=== PATIENT | male | born 1960 | race Caucasian/White ===

== ENCOUNTER → 2016-03-08 | Outpatient (REF) | payer MEDICAID, OTHER | LOC: M SFHCCLAY 15:51 | PROVIDERS: ATTEND Family Medicine | DX: E11.9 Type 2 diabetes mellitus without complications (principal) ==

== ENCOUNTER → 2016-06-15 | Outpatient (REF) | payer MEDICAID | LOC: M SFHCCLAY 06-14 17:13 | PROVIDERS: ATTEND Family Medicine | DX: E11.9 Type 2 diabetes mellitus without complications (principal) ==

== ENCOUNTER → 2016-11-28 | Outpatient (REF) | payer OTHER ==
[2016-11-29 13:07] LABS: ANION GAP 8 MEQ/L (8-16); BLOOD UREA NITROGEN 13 MG/DL (7-18); CALCIUM LEVEL 9.6 MG/DL (8.5-10.1); CARBON DIOXIDE LEVEL 30 MEQ/L (21-32); CHLORIDE LEVEL 100 MEQ/L (98-107); CREATININE FOR GFR 0.92 MG/DL (0.70-1.30); GLOMERULAR FILTRATION RATE > 60.0 (>56); GLUCOSE, FASTING 173 MG/DL (70-105); POTASSIUM SERUM 4.3 MEQ/L (3.5-5.1); SODIUM LEVEL 138 MEQ/L (136-145)
== END ==
LOC: M SFHCCLAY 15:43
PROVIDERS: ATTEND Family Medicine
DX: E11.9 Type 2 diabetes mellitus without complications (principal)

== ENCOUNTER → 2017-04-17 | Outpatient (REF) | payer OTHER ==
[2017-04-18 11:48] LABS: ANION GAP 4 MEQ/L (8-16); BLOOD UREA NITROGEN 9 MG/DL (7-18); CALCIUM LEVEL 8.9 MG/DL (8.5-10.1); CARBON DIOXIDE LEVEL 32 MEQ/L (21-32); CHLORIDE LEVEL 102 MEQ/L (98-107); CREATININE FOR GFR 0.72 MG/DL (0.70-1.30); GLOMERULAR FILTRATION RATE > 60.0 (>56); GLUCOSE, FASTING 171 MG/DL (70-100); POTASSIUM SERUM 4.4 MEQ/L (3.5-5.1); SODIUM LEVEL 138 MEQ/L (136-145)
[2017-04-18 12:00] LABS: ESTIMATED AVERAGE GLUCOSE 174 MG/DL (60-110); HEMOGLOBIN A1c 7.7 %
== END ==
LOC: M SFHCCLAY 14:21
DX: E11.9 Type 2 diabetes mellitus without complications (principal); I10 Essential (primary) hypertension

== ENCOUNTER → 2017-05-15 | Outpatient (REF) | payer OTHER | LOC: M LAB REF 11:53 | DX: D23.39 Other benign neoplasm of skin of other parts of face (principal) ==

== ENCOUNTER → 2017-07-18 | Outpatient (REF) | payer OTHER | LOC: M LAB REF 07-19 12:44 | DX: D23.39 Other benign neoplasm of skin of other parts of face (principal) ==

== ENCOUNTER → 2017-09-05 | Outpatient (REF) | payer OTHER | LOC: M LAB REF 09:50 | DX: C44.311 Basal cell carcinoma of skin of nose (principal) | CPT/HCPCS: 88305 ==

== ENCOUNTER → 2017-10-11 | Outpatient (REF) | payer OTHER | LOC: M SFHCCLAY 14:19 | DX: E11.9 Type 2 diabetes mellitus without complications (principal) ==

== ENCOUNTER → 2018-02-12 | Outpatient (REF) | payer OTHER ==
[2018-02-13 11:36] LABS: BLOOD UREA NITROGEN 16 MG/DL (7-18); CALCIUM LEVEL 8.7 MG/DL (8.5-10.1); CARBON DIOXIDE LEVEL 32 MEQ/L (21-32); CHLORIDE LEVEL 98 MEQ/L (98-107); CREATININE FOR GFR 0.82 MG/DL (0.70-1.30); GLOMERULAR FILTRATION RATE > 60.0 (>56); GLUCOSE, FASTING 261 MG/DL (70-100); POTASSIUM SERUM 4.2 MEQ/L (3.5-5.1); SODIUM LEVEL 136 MEQ/L (136-145)
[2018-02-13 11:52] LABS: HEMOGLOBIN A1c 9.8 %
== END ==
LOC: M SFHCCLAY 15:02
PROVIDERS: ATTEND Family Medicine
DX: E11.9 Type 2 diabetes mellitus without complications (principal); I10 Essential (primary) hypertension

== ENCOUNTER 2018-12-02 19:59 | Inpatient (IN) | payer OTHER ==
[~2018-12-02] VITALS: Ht 170.2 cm; Wt 99.7 kg
[2018-12-02] MEDS ORDERED: methylPREDNISolone INJ 125 MG/2 ML VIAL (J2930) IV ONE (20:30)
[2018-12-02] MEDS: IPRATROPIUM 0.5MG/ALBUTEROL 2.5MG INH SOL UD 3ML (DUONEB)(J7620) NEB PRN ×3 (20:38→22:42)
[2018-12-02 20:44] LABS: BASO # 0.1 10^3/uL (0.0-0.2); BASO % 0.6 % (0.0-1.0); EOS % 0.3 % (0.0-3.0); HEMATOCRIT 48.4 % (42.0-52.0); HEMOGLOBIN 17.1 g/dl (13.5-17.5); LYMPH # 2.1 10^3/uL (1.5-5.0); LYMPH % 16.4 % (24.0-44.0); MEAN CORPUSCULAR HEMOGLOBIN 31.7 pg (27.0-33.0); MEAN CORPUSCULAR HGB CONC 35.3 g/dl (32.0-36.5); MEAN CORPUSCULAR VOLUME 89.8 fl (80.0-96.0); NEUTROPHILS # 9.5 10^3/uL (1.5-8.5); NEUTROPHILS % 74.5 % (36.0-66.0); PLATELET COUNT, AUTOMATED 269 10^3/uL (150-450); RED BLOOD COUNT 5.39 10^6/uL (4.30-6.10); WHITE BLOOD COUNT 12.7 10^3/uL (4.0-10.0)
[2018-12-02 20:44] LABS: VENOUS BASE EXCESS 4.2 (-2.0-2.0); VENOUS HCO3 31.1 MEQ/L (23.0-27.0); VENOUS O2 SATURATION 88.3 % (60.0-80.0); VENOUS PARTIAL PRESSURE CO2 54.2 mmHg (38.0-50.0); VENOUS PARTIAL PRESSURE O2 54.4 mmHg (30.0-50.0); VENOUS PH 7.377 UNITS (7.330-7.430); VENOUS STANDARD HCO3 27.9 MEQ/L; VENOUS TOTAL CO2 32.8 MEQ/L (24.0-28.0)
[2018-12-02] MEDS: DOCUSATE SODIUM 100 MG CAP PO SCH (21:00)
[2018-12-02 21:05] LABS: INR 1.12; PROTHROMBIN TIME 14.1 SECONDS (11.8-14.0)
[2018-12-02 21:06] LABS: PARTIAL THROMBOPLASTIN TIME 28.1 SECONDS (25.0-38.4)
[2018-12-02 21:14] LABS: BLOOD UREA NITROGEN 12 MG/DL (7-18); CREATININE FOR GFR 0.88 MG/DL (0.70-1.30); GLUCOSE, FASTING 275 MG/DL (70-100)
[2018-12-02 21:15] LABS: ALBUMIN 3.8 GM/DL (3.2-5.2); ALT/SGPT 23 U/L (12-78); BILIRUBIN,DIRECT 0.3 MG/DL (0.0-0.2); CALCIUM LEVEL 8.8 MG/DL (8.5-10.1); CARBON DIOXIDE LEVEL 33 MEQ/L (21-32); CHLORIDE LEVEL 97 MEQ/L (98-107); CK-MB VALUE MASS 1.4 NG/ML (<3.6); CPK CREATINE PHOSPHOKINASE 158 U/L (39-308); FREE T4 1.05 NG/DL (0.76-1.46); GLOMERULAR FILTRATION RATE > 60.0 (>56); MB/CK RELATIVE INDEX 0.89 (< OR =4); NT-PRO BNP 50 PG/ML (<125); SODIUM LEVEL 136 MEQ/L (136-145); THYROID STIMULATING HORMONE 0.654 uIU/ML (0.358-3.740); TOTAL PROTEIN 7.3 GM/DL (6.4-8.2); TROPONIN I < 0.02 NG/ML (< 0.10)
[2018-12-02] MEDS ORDERED: ISOVUE-370 76% 100ML VIAL (Q9967) As Ordered ONE (21:33)
--- NOTE | 2018-12-02 22:16 | REPVR ---
PROCEDURE INFORMATION: Exam: CT Angiography Chest With Contrast Exam date and time: 12/02/2018 9:45 PM Clinical history: 58 years old, male; Shortness of breath; Additional info: SOB, hypoxia TECHNIQUE: Imaging protocol: Computed tomographic angiography of the chest with intravenous contrast. 3D rendering: MIP reconstructed images were created and reviewed. Radiation optimization: All CT scans at this facility use at least one of these dose optimization techniques: automated exposure control; mA and/or kV adjustment per patient size (includes targeted exams where dose is matched to clinical indication); or iterative reconstruction. Contrast material: ISOVUE 370; Contrast volume: 75 ml; Contrast route: IV; COMPARISON: CR Chest, 2 view PA, Lat 12/02/2018 8:54 PM FINDINGS: Pulmonary arteries: The main pulmonary artery measures 28 mm. No central pulmonary embolism is identified. Aorta: The ascending thoracic aorta measures 34 mm. Lungs: Slight interstitial prominence with minimal fibro-atelectatic change in the medial right middle lobe, anterior right lower lobe and lingular tip. Minimal infiltrates, greatest in the right middle lobe. Pleural space: Unremarkable. No pneumothorax. No pleural effusion. Heart: Unremarkable. No cardiomegaly. No pericardial effusion. Lymph nodes: Numerous mediastinal nodes which are borderline overall. Bones/joints: Unremarkable. No acute fracture. Soft tissues: Unremarkable. IMPRESSION: 1. Borderline mediastinal adenopathy. 2. Slight interstitial prominence with minimal fibro-atelectatic change and minimal scattered tree in bud infiltrates, greatest in the right middle lobe. 3. No central pulmonary embolism is identified. Electronically signed by: Jefferson Tineo On 12/02/2018 22:16:26 PM
[2018-12-03] MEDS ORDERED: MOM 30ML SUSPENSION UDC PO PRN
[2018-12-03] MEDS ORDERED: MAALOX 30 ML SUSP *UDC PO PRN
[2018-12-03] MEDS ORDERED: ACETAMINOPHEN TAB 650MG DOSE (2X325MG) PO PRN
[2018-12-03] MEDS ORDERED: IPRATROPIUM 0.5MG/ALBUTEROL 2.5MG INH SOL UD 3ML (DUONEB)(J7620) NEB PRN (00:15)
--- NOTE | 2018-12-03 00:17 | HPEPDOC ---
General Date of Admission 12/03/18 Date of Service: Dec 03, 2018 Primary Care Physician: Niall Rollins MD Attending Physician: JAMIE YE MD Chief Complaint The patient is a 58-year-old male admitted with a reason for visit of COUGH. Source: Patient Exam Limitations: No limitations Timing/Duration: Other (few days) Severity: Moderate Associated Symptoms: Shortness of breath History of Present Illness This is 58 years old white male with past medical history of significant disease except history of smoking since he was 13 years old. Patient follows up at the [facility] for his routine follow-up and examinations. As per chelly ent, he quit smoking about 2 weeks ago as he is been feeling increasing shortness of breath since the beginning of this month. Denies chest pain, abdominal pain, nausea, vomiting, dizziness, cough, sputum, hemoptysis, etc. Home Medications No Active Prescriptions or Reported Meds Allergies Coded Allergies: No Known Allergies (Unverified , 12/02/18) Past Medical History Medical History None, as per patient Surgical History Right shoulder arthroscopic surgery Family History Significant Family History: No pertinent family hx Social History * Smoker: current smoker, greater than 1 pack/day Alcohol: Denies Drugs: denies A-FIB/CHADSVASC A-FIB History Current/History of A-Fib/PAF?: No Review of Systems Constitutional: Denies: Chills, Fever, Malaise, Night Sweats, Weakness, Fatigue, Weight Loss, Lethargy, Other Eyes: Denies: Pain, Vision change, Conjunctivae inflammation, Eyelid inflammation, Redness, Other ENT: Denies: Head Aches, Ear Pain, Dysphagia, Sinus Congestion, Post Nasal Drip, Sore Throat, Epistaxis, Other Symptoms Skin: Denies: Rash, Lesions, Jaundice, Bruising, Itching, Dry, Breakdown, Nail Changes, Other Pulmonary: Reports: Dyspnea Cardiovascular: Denies: Chest Pain, Palpitations, Orthopnea, Paroxysmal Noc. Dyspnea, Edema, Lt Headedness, Other Symptoms Gastrointestinal: Denies: Nausea, Vomiting, Abdominal Pain, Diarrhea, Constipat ion, Melena, Hematochezia, Other Symptoms Genitourinary: Denies: Dysuria, Frequency, Incontinence, Hematuria, Retention, Other Symptoms Endocrine: Denies: Polydipsia, Polyphagia, Polyuria, Heat Intolerance, Cold Intolerance, Other Endocrine Sx Musculoskeletal: Denies: Neck Pain, Back Pain, Shoulder Pain, Arm Pain, Hand Pain, Leg Pain, Foot Pain, Joint Pain, Muscle Pain, Spasms, Other Symptoms Neurological: Denies: Weakness, Numbness, Incoordination, Change in speech, Confusion, Seizures, Other Symptoms Psych: Denies: Mood Normal, Anxiety, Depression, Memory Issues, Thoughts of Self Harm, Anger, Thoughts of Harming Other, Other Psych Physical Examination General Exam: Positive: Alert, Cooperative Eye Exam: Positive: PERRLA, Conjunctiva & lids normal ENT Exam: Positive: Atraumatic, Mucous membr. moist/pink Neck Exam: Positive: Supple Chest Exam: Positive: Wheezing (. Bilateral expiratory wheezing) Heart Exam: Positive: Rate Normal, Normal S1, Normal S2 Abdomen Exam: Positive: Normal bowel sounds Extremity Exam: Positive: Normal pulses Skin Exam: Positive: Nl turgor and temperature Neuro Exam: Positive: Strength at 5/5 X4 ext, Sensation Intact Psych Exam: Positive: Mood NL, Oriented x 3 Vital Signs Vital Signs Date Time Temp Pulse Resp B/P (MAP) Pulse Ox O2 Delivery O2 Flow Rate FiO2 12/02/18 21:30 113 12/02/18 21:15 18 161/86 (111) 91 Nasal Cannula 3.0 12/02/18 19:59 98.8 Laboratory Data Labs 24H Laboratory Tests 2 12/02/18 20:29: Prothrombin Time 14.1H, Prothromb Time International Ratio 1.12, Activated Partial Thromboplast Time 28.1, Blood Gas Bicarbonate Standard 27.9, Venous Blood pH 7.377, Venous Blood Partial Pressure CO2 54.2H, Venous Blood Partial Pressure O2 54.4H, Venous Blood Total Carbon Dioxide 32.8H, Venous Blood HCO3 31.1H, Venous Blood Oxygen Saturation 88.3H, Venous Blood Base Excess 4.2H, Anion Gap 6L, Glomerular Filtration Rate > 60.0, Calcium Level 8.8, Aspartate Amino Transf (AST/SGOT) 10, Alanine Aminotransferase (ALT/SGPT) 23, Alkaline Phosphatase 98, Total Bilirubin 1.0, Direct Bilirubin 0.3H, Total Creatine Kinase 158, Creatine Kinase MB 1.4, Creatine Kinase MB Relative Index 0.89, Troponin I < 0.02, AH-Thi-B-Type Natriuretic Peptide 50, Total Protein 7.3, Albumin 3.8, Albumin/Globulin Ratio 1.09, Thyroid Stimulating Hormone (TSH) 0.654, Free Thyroxine 1.05 12/02/18 20:30: Immature Granulocyte % (Auto) 0.2, White Blood Count 12.7H, Red Blood Count 5.39, Hemoglobin 17.1, Hematocrit 48.4, Mean Corpuscular Volume 89.8, Mean Co rpuscular Hemoglobin 31.7, Mean Corpuscular Hemoglobin Concent 35.3, Red Cell Distribution Width 13.2, Platelet Count 269, Neutrophils (%) (Auto) 74.5H, Lymphocytes (%) (Auto) 16.4L, Monocytes (%) (Auto) 8.0H, Eosinophils (%) (Auto) 0.3, Basophils (%) (Auto) 0.6, Neutrophils # (Auto) 9.5H, Lymphocytes # (Auto) 2.1, Monocytes # (Auto) 1.0H, Eosinophils # (Auto) 0.0, Basophils # (Auto) 0.1, Nucleated Red Blood Cells % (auto) 0.0 CBC/BMP Laboratory Tests 12/02/18 20:29 12/02/18 20:30 Red Blood Count 5.39, Mean Corpuscular Volume 89.8, Mean Corpuscular Hemoglobin 31.7, Mean Corpuscular Hemoglobin Concent 35.3, Red Cell Distribution Width 13.2, Neutrophils (%) (Auto) 74.5 H, Lymphocytes (%) (Auto) 16.4 L, Monocytes (%) (Auto) 8.0 H, Eosinophils (%) (Auto) 0.3, Basophils (%) (Auto) 0.6, Neutrophils # (Auto) 9.5 H, Lymphocytes # (Auto) 2.1, Monocytes # (Auto) 1.0 H, Eosinophils # (Auto) 0.0, Basophils # (Auto) 0.1 Microbiology Microbiology 12/02/18 Gram Stain, Received Pending 12/02/18 Sputum Culture, Received Pending Problems (1) COPD exacerbation Status: Acute Problem Text: 58 years old white male who is a past medical history of smoking 1-1/2 pack per day since he was 13 years old. Patient has been experiencing increasing shortness of breath since last 2 weeks. Hence, he quit smoking, but he is still not feeling better and decided to come to ER where he is being admitted with exacerbation of COPD. Admit to [facility] floor DuoNeb every 6 hours and every 2 hours when necessary Solu-Medrol 60 mg IV every 8 hours Oxygen support Sputum for Gram stain and culture Extensive smoking cessation counseling done DVT prophylaxis with Lovenox Diet regular Activity as tolerated Plan / VTE VTE Prophylaxis Ordered?: Yes JAMIE YE MD Dec 03, 2018 00:17
[2018-12-03 01:11] VITALS: BP 164/82
[2018-12-03] MEDS: IPRATROPIUM 0.5MG/ALBUTEROL 2.5MG INH SOL UD 3ML (DUONEB)(J7620) NEB SCH ×4 (02:00→19:17)
[2018-12-03] MEDS: methylPREDNISolone INJ 125 MG/2 ML VIAL (J2930) IV SCH ×3 (05:25→22:39)
[2018-12-03 05:48] LABS: HEMATOCRIT 47.7 % (42.0-52.0); HEMOGLOBIN 16.3 g/dl (13.5-17.5); MEAN CORPUSCULAR HEMOGLOBIN 31.1 pg (27.0-33.0); MEAN CORPUSCULAR HGB CONC 34.2 g/dl (32.0-36.5); PLATELET COUNT, AUTOMATED 263 10^3/uL (150-450); RED BLOOD COUNT 5.24 10^6/uL (4.30-6.10); WHITE BLOOD COUNT 8.6 10^3/uL (4.0-10.0)
[2018-12-03 06:00] VITALS: BP 140/80
[2018-12-03 06:12] LABS: BLOOD UREA NITROGEN 15 MG/DL (7-18); CARBON DIOXIDE LEVEL 33 MEQ/L (21-32); CHLORIDE LEVEL 95 MEQ/L (98-107); CREATININE FOR GFR 1.06 MG/DL (0.70-1.30); GLOMERULAR FILTRATION RATE > 60.0 (>56); GLUCOSE, FASTING 394 MG/DL (70-100); POTASSIUM SERUM 4.3 MEQ/L (3.5-5.1); SODIUM LEVEL 135 MEQ/L (136-145)
[2018-12-03 06:13] LABS: ALBUMIN 3.5 GM/DL (3.2-5.2); ALT/SGPT 23 U/L (12-78); CALCIUM LEVEL 9.2 MG/DL (8.5-10.1); MAGNESIUM LEVEL 1.7 MG/DL (1.8-2.4); TOTAL PROTEIN 7.8 GM/DL (6.4-8.2)
--- NOTE | 2018-12-03 07:50 | REP ---
PA and lateral chest: Comparison is well 2010. The lung pelaez are clear. The cardiac size is normal. The jared, mediastinum, and skeletal structures are unremarkable. Impression: Negative PA and lateral chest. There is no interval change. Electronically Signed by Jason Richardson MD 12/03/2018 07:42 A
[2018-12-03] MEDS: DOCUSATE SODIUM 100 MG CAP PO SCH ×2 (08:19→20:06)
[2018-12-03] MEDS: ENOXAPARIN 40 MG/0.4 ML SYRINGE (J1650) SC SCH (08:19)
[2018-12-03] MEDS: NICOTINE 21MG/24HR 1 EA TRANSDERMAL TD SCH (09:00)
--- NOTE | 2018-12-03 10:18 | IPNPDOC ---
Subjective Date Seen The patient was seen on 12/03/18. Subjective Chief Complaint/HPI breathing feels better today. Dry cough persists. No hemoptysis Constitutional: Denies: Chills, Fever Pulmonary: Reports: Dyspnea, Cough Cardiovascular: Denies: Chest Pain, Palpitations, Orthopnea, Edema Objective Physical Examination General Exam: Positive: Alert, Cooperative Neck Exam: Positive: Supple Chest Exam: Positive: Wheezing, Diminished Heart Exam: Positive: Rate Normal, Regular Rhythm, Normal S1, Normal S2 Abdomen Exam: Positive: Normal bowel sounds; Negative: Tenderness Extremity Exam: Positive: Normal pulses Skin Exam: Positive: Nl turgor and temperature Psych Exam: Positive: Mood NL, Oriented x 3 Assessment /Plan Problems (1) COPD exacerbation Status: Acute Response to Treatment: Improving Problem Text: Chest CT: IMPRESSION: 1. Borderline mediastinal adenopathy. 2. Slight interstitial prominence with minimal fibro-atelectatic change and minimal scattered tree in bud infiltrates, greatest in the right middle lobe. 3. No central pulmonary embolism is identified Continue Solumedrol IV Add IV Rocephin due to moderate severity COPD exacerbation requiring hospitalization and infiltrates on CT Cont oxygen - not normally on O2 at home, but may need this considering the chronic severe COPD suspected based on his ABG. Cont nebs (Will likely need some sort of inhaler as outpatient for maintenance as formal PFTs at outpatient one recovered from current illness) (2) Diabetes type 2, uncontrolled Status: Chronic Problem Text: HgbA1c was 9.9 01/2018 He has not taken any of his meds including Glimeperide for over 6 months stating he can't afford them He is unable to articulate what a diabetic diet includes Restart Glimeperide for now and cont SSI. Had Metformin listed on allergy list in ecw - caused diarrhea Blood sugars will be even higher on steroids - may need Long acting insulin, but patient would require extensive teaching regading this. I have asked PFS to assisit in assuring his meds are available and affordable fo r him Get dietition to see him while he is here. (3) HTN (hypertension) Status: Chronic Problem Specific Plan: Consult Specialist Problem Text: Has not taken BP meds in 6 months - start and adjust prn (4) Nicotine dependence Status: Chronic Problem Text: smokes 1/2 ppd - risks of smoking including worsening lung disease and frequent exacerbations discussed. Start Nicoderm and encourage cessation (5) Non-compliance Problem Text: see above - Get PFS to help identify obstacles to care Plan/VTE VTE Prophylaxis Ordered?: Yes (Lovenox) VS, I&O, 24H, Fishbone Vital Signs/I&O Vital Signs Date Time Temp Pulse Resp B/P (MAP) Pulse Ox O2 Delivery O2 Flow Rate FiO2 12/03/18 08:20 3.0 12/03/18 06:00 98.5 99 18 140/80 (100) 91 12/03/18 00:00 Nasal Cannula I&O- Last 24 Hours up to 6 AM 12/03/18 06:00 Intake Total 300 ml Balance 300 ml Laboratory Data 24H LABS Laboratory Tests 2 12/02/18 20:29: Prothrombin Time 14.1H, Prothromb Time International Ratio 1.12, Activated Parti al Thromboplast Time 28.1, Blood Gas Bicarbonate Standard 27.9, Venous Blood pH 7.377, Venous Blood Partial Pressure CO2 54.2H, Venous Blood Partial Pressure O2 54.4H, Venous Blood Total Carbon Dioxide 32.8H, Venous Blood HCO3 31.1H, Venous Blood Oxygen Saturation 88.3H, Venous Blood Base Excess 4.2H, Anion Gap 6L, Glomerular Filtration Rate > 60.0, Calcium Level 8.8, Aspartate Amino Transf (AST/SGOT) 10, Alanine Aminotransferase (ALT/SGPT) 23, Alkaline Phosphatase 98, Total Bilirubin 1.0, Direct Bilirubin 0.3H, Total Creatine Kinase 158, Creatine Kinase MB 1.4, Creatine Kinase MB Relative Index 0.89, Troponin I < 0.02, FW-Caj-L-Type Natriuretic Peptide 50, Total Protein 7.3, Albumin 3.8, Al bumin/Globulin Ratio 1.09, Thyroid Stimulating Hormone (TSH) 0.654, Free Thyroxine 1.05 12/02/18 20:30: Immature Granulocyte % (Auto) 0.2, White Blood Count 12.7H, Red Blood Count 5.39, Hemoglobin 17.1, Hematocrit 48.4, Mean Corpuscular Volume 89.8, Mean Corpuscular Hemoglobin 31.7, Mean Corpuscular Hemoglobin Concent 35.3, Red Cell Distribution Width 13.2, Platelet Count 269, Neutrophils (%) (Auto) 74.5H, Lymphocytes (%) (Auto) 16.4L, Monocytes (%) (Auto) 8.0H, Eosinophils (%) (Auto) 0.3, Basophils (%) (Auto) 0.6, Neutrophils # (Auto) 9.5H, Lymphocytes # (Auto) 2.1, Monocytes # (Auto) 1.0H, Eosinophils # (Auto) 0.0, Basophils # (Auto) 0.1, Nucleated Red Blood Cells % (auto) 0.0 12/03/18 05:21: Anion Gap 7L, Glomerular Filtration Rate > 60.0, Calcium Level 9.2, Aspartate Amino Transf (AST/SGOT) 8, Alanine Aminotransferase (ALT/SGPT) 23, Alkaline Phosphatase 89, Total Bilirubin 1.0, Total Protein 7.8, Albumin 3.5, Albumin/Globulin Ratio 0.81L, Nucleated Red Blood Cells % (auto) 0.0, Blood Urea Nitrogen 15, Creatinine 1.06, Sodium Level 135L, Potassium Level 4.3, Chloride Level 95L, Carbon Dioxide Level 33H, Magnesium Level 1.7L CBC/BMP Laboratory Tests 12/02/18 20:29 12/02/18 20:30 Red Blood Count 5.39, Mean Corpuscular Volume 89.8, Mean Corpuscular Hemoglobin 31.7, Mean Corpuscular Hemoglobin Concent 35.3, Red Cell Distribution Width 13.2, Neutrophils (%) (Auto) 74.5 H, Lymphocytes (%) (Auto) 16.4 L, Monocytes ( %) (Auto) 8.0 H, Eosinophils (%) (Auto) 0.3, Basophils (%) (Auto) 0.6, Neutrophils # (Auto) 9.5 H, Lymphocytes # (Auto) 2.1, Monocytes # (Auto) 1.0 H, Eosinophils # (Auto) 0.0, Basophils # (Auto) 0.1 12/03/18 05:21 Red Blood Count 5.24, Mean Corpuscular Volume 91.0, Mean Corpuscular Hemoglobin 31.1, Mean Corpuscular Hemoglobin Concent 34.2, Red Cell Distribution Width 13.2, Calcium Level 9.2, Aspartate Amino Transf (AST/SGOT) 8, Alanine Aminotransferase (ALT/SGPT) 23, Alkaline Phosphatase 89, Total Bilirubin 1.0, Total Protein 7.8, Albumin 3.5 Microbiology Microbiology 10/8/19 Gram Stain - Final, Resulted 12/02/18 Sputum Culture, Resulted Pending INO FLORES PA-C Dec 03, 2018 10:18
[2018-12-03] MEDS ORDERED: GLUCOSE 4 GM CHEW TABLET PO PRN (10:30)
[2018-12-03] MEDS ORDERED: DEXTROSE 50% 50 ML SYRINGE IV PRN (10:30)
[2018-12-03] MEDS ORDERED: GLUCAGON FOR INJ 1 MG VIAL (J1610) SC PRN (10:30)
[2018-12-03] MEDS: lisinopriL 40 MG TAB PO SCH (11:19)
[2018-12-03] MEDS: GLIMEPIRIDE 2 MG TAB PO SCH (11:19)
[2018-12-03] MEDS: cefTRIAXone SOD 1 GM in D5W MINI-BAG PLUS 50 ML IV SCH (11:20)
[2018-12-03] MEDS: MAGNESIUM OXIDE 400 MG TAB (MAG-OX) PO SCH ×2 (11:20→20:06)
--- NOTE | 2018-12-03 12:10 | ECGEPIP ---
[facility] - ED Test Date: 2018-12-02 Pat Name: ROSCOE SIERRA Department: Room: [place] [address] Gender: Male [employer] Worker: KI : 1960 Requested By: NATACHA Geiger Order Number: [id number] Reading MD: Veronica Roth Measurements Intervals [place] Rate: 110 P: 74 [place]: 168 QRS: 70 QRSD: 94 T: 74 QT: 266 QTc: 361 Interpretive Statements SINUS TACHYCARDIA NONSPECIFIC T-WAVE ABNORMALITY ABNORMAL RHYTHM ECG No prior Electronically Signed on 12-03-2018 12:09:52 EDT by Veronica Roth
[2018-12-03] MEDS: HumaLOG INSULIN (NovoLOG) PER UNIT SC SCH ×3 (12:20→20:07)
[2018-12-03 14:00] VITALS: BP 114/56
[2018-12-03] MEDS: ATORVASTATIN 20 MG TAB PO SCH (20:06)
[2018-12-03] MEDS ORDERED: LEVEMIR (INSULIN DETEMIR) 1 UNITS/0.01ML SC SCH (21:00)
[2018-12-03 22:00] VITALS: BP 118/56
[2018-12-04] MEDS: IPRATROPIUM 0.5MG/ALBUTEROL 2.5MG INH SOL UD 3ML (DUONEB)(J7620) NEB SCH ×4 (01:00→20:20)
[2018-12-04] MEDS: methylPREDNISolone INJ 125 MG/2 ML VIAL (J2930) IV SCH ×2 (05:27→21:28)
[2018-12-04 06:00] VITALS: BP 149/73
[2018-12-04 06:22] LABS: ALBUMIN 3.4 GM/DL (3.2-5.2); ALT/SGPT 21 U/L (12-78); BILIRUBIN,TOTAL 0.5 MG/DL (0.2-1.0); BLOOD UREA NITROGEN 31 MG/DL (7-18); CALCIUM LEVEL 9.7 MG/DL (8.5-10.1); CARBON DIOXIDE LEVEL 33 MEQ/L (21-32); CHLORIDE LEVEL 96 MEQ/L (98-107); CREATININE FOR GFR 0.94 MG/DL (0.70-1.30); GLOMERULAR FILTRATION RATE > 60.0 (>56); GLUCOSE, FASTING 287 MG/DL (70-100); POTASSIUM SERUM 3.9 MEQ/L (3.5-5.1); SODIUM LEVEL 136 MEQ/L (136-145); TOTAL PROTEIN 7.5 GM/DL (6.4-8.2)
[2018-12-04] MEDS: GLIMEPIRIDE 2 MG TAB PO SCH (08:14)
[2018-12-04] MEDS: ENOXAPARIN 40 MG/0.4 ML SYRINGE (J1650) SC SCH (08:14)
[2018-12-04] MEDS: NICOTINE 21MG/24HR 1 EA TRANSDERMAL TD SCH (08:15)
[2018-12-04] MEDS: DOCUSATE SODIUM 100 MG CAP PO SCH ×3 (08:15→21:00)
[2018-12-04] MEDS: lisinopriL 40 MG TAB PO SCH (08:15)
[2018-12-04] MEDS: MAGNESIUM OXIDE 400 MG TAB (MAG-OX) PO SCH ×2 (08:15→21:26)
[2018-12-04] MEDS: HumaLOG INSULIN (NovoLOG) PER UNIT SC SCH ×4 (08:16→21:00)
--- NOTE | 2018-12-04 09:07 | IPNPDOC ---
Subjective Date Seen The patient was seen on 12/04/18. Subjective Chief Complaint/HPI Pt this morning is doing alright. Reports that his breathing has improved significantly. He states that he still has concerns about affording medications at d/c. General: Denies: Fatigue Constitutional: Denies: Chills, Fever ENT: Denies: Head Aches Pulmonary: Reports: Dyspnea, Cough Cardiovascular: Denies: Chest Pain Gastrointestinal: Denies: Nausea, Vomiting, Diarrhea Neurological: Denies: Weakness Psych: Reports: Mood Normal Objective Physical Examination General Exam: Positive: Alert, Cooperative Neck Exam: Positive: Supple Chest Exam: Positive: Wheezing (Insp/exp), Diminished Heart Exam: Positive: Rate Normal, Regular Rhythm, Normal S1, Normal S2 Abdomen Exam: Positive: Normal bowel sounds; Negative: Tenderness Extremity Exam: Positive: Normal pulses Skin Exam: Positive: Nl turgor and temperature Psych Exam: Positive: Mood NL, Oriented x 3 Assessment /Plan Problems (1) COPD exacerbation Status: Acute Response to Treatment: Improving Problem Text: 12/04 Improved resp status, will decrease Solumedrol frmo 60 mg Q8h to 40 mg BID, cont IV Rocephin, anticipate transition to PO tomorrow if he cont to respond favorablely. Stressed importance of smoking cessation. 12/[address]: IMPRESSION: 1. Borderline mediastinal adenopathy. 2. Slight interstitial prominence with minimal fibro-atelectatic change and minimal scattered tree in bud infiltrates, greatest in the right middle lobe. 3. No central pulmonary embolism is identified Continue Solumedrol IV Add IV Rocephin due to moderate severity COPD exacerbation requiring hospitalization and infiltrates on CT Cont oxygen - not normally on O2 at home, but may need this considering the chronic severe COPD suspected based on his ABG. Cont nebs (Will likely need some sort of inhaler as outpatient for maintenance as formal PFTs at outpatient one recovered from current illness) (2) Diabetes type 2, uncontrolled Status: Chronic Problem Text: 12/04 Counseled on compliance with f/u and working with PCP to obtain affordable medications. He should be arranged to work with the child care counselor as an outpt as well as CDE if he is willing. He is taking Glimepiride, SSI, I have added Metformin ER will, he has had SR in the past with diarrhea, will see if he tolerated ER any better. 12/03 HgbA1c was 9.9 01/2018 He has not taken any of his meds including Glimeperide for over 6 months stating he can't afford them He is unable to articulate what a diabetic diet includes Restart Glimeperide for now and cont SSI. Had Metformin listed on allergy list in ecw - caused diarrhea Blood sugars will be even higher on steroids - may need Long acting insulin, but patient would require extensive teaching regading this. I have asked PFS to assisit in assuring his meds are available and affordable for him Get dietition to see him while he is here. (3) HTN (hypertension) Status: Chronic Problem Specific Plan: Consult Specialist Problem Text: Has not taken BP meds in 6 months - start and adjust prn (4) Nicotine dependence Status: Chronic Problem Text: smokes 1/2 ppd - risks of smoking including worsening lung disease and frequent exacerbations discussed. Start Nicoderm and encourage cessation (5) Non-compliance Problem Text: see above - Get PFS to help identify obstacles to care Plan/VTE VTE Prophylaxis Ordered?: Yes (Lovenox) VS, I&O, 24H, Fishbone Vital Signs/I&O Vital Signs Date Time Temp Pulse Resp B/P (MAP) Pulse Ox O2 Delivery O2 Flow Rate FiO2 12/04/18 06:00 97.9 99 18 149/73 (98) 92 12/03/18 20:15 2.0 12/03/18 00:00 Nasal Cannula I&O- Last 24 Hours up to 6 AM 12/04/18 06:00 Intake Total 2550 ml Output Total 0 ml Balance 2550 ml Laboratory Data 24H LABS Laboratory Tests 2 12/03/18 10:49: Estimated Mean Plasma Glucose 240H, Hemoglobin A1c 10.0 12/03/18 11:43: Bedside Glucose (Misc Panel) 534*H 12/03/18 13:53: Bedside Glucose (Misc Panel) 317H 12/03/18 17:07: Bedside Glucose (Misc Panel) 281H 12/03/18 19:56: Bedside Glucose (Misc Panel) 444H 12/04/18 05:26: Anion Gap 7L, Glomerular Filtration Rate > 60.0, Blood Urea Nitrogen 31#H, Creatinine 0.94, Sodium Level 136, Potassium Level 3.9, Chloride Level 96L, Carbon Dioxide Level 33H, Calcium Level 9.7, Aspartate Amino Transf (AST/SGOT) 8, Alanine Aminotransferase (ALT/SGPT) 21, Alkaline Phosphatase 86, Total Bilirubin 0.5, Total Protein 7.5, Albumin 3.4, Albumin/Globulin Ratio 0.83L CBC/BMP Laboratory Tests 12/04/18 05:26 Calcium Level 9.7, Aspartate Amino Transf (AST/SGOT) 8, Alanine Aminotransferase (ALT/SGPT) 21, Alkaline Phosphatase 86, Total Bilirubin 0.5, Total Protein 7.5, Albumin 3.4 Microbiology Microbiology 12/02/18 Gram Stain - Final, Resulted 12/02/18 Sputum Culture, Resulted Pending SAMI JONES PA-C Dec 04, 2018 09:07
[2018-12-04] MEDS: cefTRIAXone SOD 1 GM in D5W MINI-BAG PLUS 50 ML IV SCH (11:03)
[2018-12-04 14:00] VITALS: BP 134/86
[2018-12-04] MEDS ORDERED: metFORMIN XR 750 MG TAB PO SCH (18:00)
[2018-12-04] MEDS ORDERED: LEVEMIR (INSULIN DETEMIR) 1 UNITS/0.01ML SC SCH (21:00)
[2018-12-04] MEDS: ATORVASTATIN 20 MG TAB PO SCH (21:26)
[2018-12-04 22:00] VITALS: BP 121/73
[2018-12-05] MEDS: IPRATROPIUM 0.5MG/ALBUTEROL 2.5MG INH SOL UD 3ML (DUONEB)(J7620) NEB SCH ×3 (01:27→14:00)
[2018-12-05 06:00] VITALS: BP 127/72
[2018-12-05 06:11] LABS: BLOOD UREA NITROGEN 26 MG/DL (7-18); CALCIUM LEVEL 9.4 MG/DL (8.5-10.1); CARBON DIOXIDE LEVEL 34 MEQ/L (21-32); CHLORIDE LEVEL 97 MEQ/L (98-107); CREATININE FOR GFR 1.04 MG/DL (0.70-1.30); GLOMERULAR FILTRATION RATE > 60.0 (>56); GLUCOSE, FASTING 280 MG/DL (70-100); POTASSIUM SERUM 4.4 MEQ/L (3.5-5.1); SODIUM LEVEL 137 MEQ/L (136-145)
[2018-12-05] MEDS: DOCUSATE SODIUM 100 MG CAP PO SCH (09:00)
[2018-12-05] MEDS: NICOTINE 21MG/24HR 1 EA TRANSDERMAL TD SCH (09:00)
[2018-12-05] MEDS ORDERED: ATOR1TAB21 PO (09:03)
[2018-12-05] MEDS: methylPREDNISolone INJ 125 MG/2 ML VIAL (J2930) IV SCH (09:03)
[2018-12-05] MEDS ORDERED: ACET1TAB55 PO (09:03)
[2018-12-05] MEDS ORDERED: NICO21PAT TD (09:03)
[2018-12-05] MEDS ORDERED: LISI40TA PO (09:03)
[2018-12-05] MEDS ORDERED: AMAR1TAB5 PO (09:03)
[2018-12-05] MEDS ORDERED: MAG400TA PO (09:03)
[2018-12-05] MEDS ORDERED: BASA100I SC (09:03)
[2018-12-05] MEDS ORDERED: GLUCTAB2 PO (09:03)
[2018-12-05] MEDS ORDERED: COLA100C5 PO (09:03)
[2018-12-05] MEDS: MAGNESIUM OXIDE 400 MG TAB (MAG-OX) PO SCH (09:03)
[2018-12-05] MEDS ORDERED: CEFD300CAP PO (09:03)
[2018-12-05] MEDS: GLIMEPIRIDE 2 MG TAB PO SCH (09:03)
[2018-12-05] MEDS: lisinopriL 40 MG TAB PO SCH (09:03)
[2018-12-05] MEDS ORDERED: PRED10TA2 PO (09:03)
[2018-12-05] MEDS ORDERED: IPRA0.00 NEB (09:03)
[2018-12-05] MEDS: HumaLOG INSULIN (NovoLOG) PER UNIT SC SCH ×2 (09:04→13:15)
[2018-12-05] MEDS: ENOXAPARIN 40 MG/0.4 ML SYRINGE (J1650) SC SCH (09:04)
[2018-12-05] MEDS: cefTRIAXone SOD 1 GM in D5W MINI-BAG PLUS 50 ML IV SCH (09:56)
--- NOTE | 2018-12-05 15:46 | DSES ---
DATE OF ADMISSION: 12/03/2018 DATE OF DISCHARGE: 12/05/[address] Primary care physician [address] Dr. Niall Rollins. Attending today is Dr. Rollins. HISTORY: This is a 58-year-old male patient, who follows with Dr. Rollins in the outpatient setting, who has a history of medical noncompliance, who presented to [facility] with increasing shortness of breath. He was admitted to the hospital for chronic obstructive pulmonary disease (COPD) exacerbation, started on intravenous (IV) Solu-Medrol as well as IV Rocephin and DuoNebs. During his hospitalization, he has remained medically stable. His respiratory status has steadily improved. His IV Solu-Medrol is being transitioned to prednisone and his IV antibiotics are being transitioned to Omnicef. He has required oxygen and will be ambulated prior to his discharge to determine his need for oxygen in the outpatient setting. He also has a history of uncontrolled diabetes as he was not taking his medications in the outpatient setting. He has a history of intolerance with diarrhea associated with metformin. Other review of his records suggests that this was standard release. He then was started on glimepiride as well as metformin extended release 750 mg. He is on Levemir 15 units as well. This will need to be monitored closely and will require titration in the outpatient setting. He had not taken his blood pressure medications, although these are restarted and he seems to be tolerating them well. He has been consulted on smoking cessation. Will likely benefit from the addition of maintenance inhaled medication in the outpatient setting as well. DISCHARGE DIAGNOSES: 1. Chronic obstructive pulmonary disease exacerbation. 2. Medical noncompliance. 3. Diabetes mellitus, type 2. 4. Hypertension. 5. Nicotine dependence. DISCHARGE MEDICATIONS: - Omnicef 300 mg by mouth twice a day times 10 days - acetaminophen 650 mg by mouth every 4 hours as needed for pain or fever - atorvastatin 40 mg before bed - Colace 100 mg twice daily - Amaryl 4 mg daily - Basaglar 15 units subcu nightly - DuoNeb inhaled every 6 hours as needed for shortness of breath - lisinopril 40 mg daily - magnesium oxide 400 mg twice a day - metformin extended release 750 mg daily - nicotine patch 21 mg topically daily - prednisone taper 40 mg daily times three days, then 30 daily times three days, then 20 daily times three days, then 10 daily times three days Discharge plan will be to followup with Dr. Rollins in 1 week. Activity should be as tolerated. Diet is no added salt, consistent carbohydrate. edited: 12/08/2018 0821 tkf DARIO
== END 2018-12-05 15:13 | disposition home or self-care (01) | DRG 140 ==
LOC: M ED 19:59 → M ED INP 12-03 → M MSPAV 12-03 01:11
PROVIDERS: ADMIT Internal Medicine; ATTEND Family Medicine
DX: J44.1 Chronic obstructive pulmonary disease with (acute) exacerbation (principal); E11.65 Type 2 diabetes mellitus with hyperglycemia; I10 Essential (primary) hypertension; T38.3X6A Underdosing of insulin and oral hypoglycemic [antidiabetic] drugs, initial encounter; Z87.891 Personal history of nicotine dependence; Z91.120 Patient's intentional underdosing of medication regimen due to financial hardship